=== PATIENT | male | born 1960 | race Caucasian/White ===

== ENCOUNTER 2017-03-31 06:24 | Inpatient (IN) | payer OTHER ==
[2017-03-31] MEDS ORDERED: fentaNYL 100 MCG/2 ML INJ ONE ×2 (06:33→08:05)
[2017-03-31] MEDS ORDERED: IOPAMIDOL (ISOVUE-300) 100 ML BTL ONE (06:35)
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
[2017-03-31] MEDS ORDERED: fentaNYL 100 MCG/2 ML INJ IVP ONE ×5 (06:38→11:33)
[2017-03-31] MEDS ORDERED: ONDANSETRON 4 MG/2 ML VIAL IVP ONE ×5 (06:38→11:32)
[2017-03-31 06:41] LABS: % IMMATURE GRANULYOCYTES 2.1 % (0.0-1.1); ABSOLUTE IMMATURE GRANULOCYTES 0.17 10^3/uL (0.00-0.10); ADD DIFF? NO; ADD MORPH? NO; ADD SCAN? NO; ATYPICAL LYMPHOCYTE FLAG 0 (0-99); FRAGMENT RBC FLAG 0 (0-99); HEMATOCRIT 45.7 % (40.0-51.0); HEMOGLOBIN 15.7 g/dL (13.7-17.5); LEFT SHIFT FLG 20 (0-99); LIPEMIA HEMOLYSIS FLAG 90 (0-99); MEAN CELL HEMOGLOBIN 31.7 pg (27.9-34.1); MEAN CELL HEMOGLOBIN CONCENTR. 34.4 g/dL (32.4-36.7); MEAN CELL VOLUME 92.3 fL (81.5-99.8); MEAN PLATELET VOLUME 9.8 fL (8.7-11.7); PLATELET CLUMPS FLAG 0 (0-99); PLATELET COUNT 284 10^3/uL (150-400); RED BLOOD CELL COUNT 4.95 10^6/uL (4.40-6.38); RED CELL DISTRIBUTION WIDTH 12.7 % (11.5-15.2)
[2017-03-31] MEDS ORDERED: NS 1,000 ML IV ONE (06:42)
[2017-03-31] MEDS ORDERED: levETIRAcetam 1,000 MG in NS 100 ML IV ONE ×2 (06:46→18:00)
[2017-03-31 06:50] LABS: INR 1.05 (0.83-1.16); PROTIME(PATIENT) 13.6 SEC (12.0-15.0)
[2017-03-31 06:51] LABS: APTT 27.1 SEC (23.0-38.0)
[2017-03-31 06:52] LABS: ANION GAP 12 mEq/L (8-16); CALCIUM 9.2 mg/dL (8.5-10.4); CARBON DIOXIDE 27 mEq/l (22-31); CHLORIDE 101 mEq/L (97-110); CREATININE 0.8 mg/dL (0.7-1.3); ETHANOL SERUM < 10 mg/dL (0-10); GLOMERULAR FILTRATION RATE > 60; GLUCOSE 129 mg/dL (70-100); POTASSIUM 3.4 mEq/L (3.5-5.2); SODIUM 140 mEq/L (134-144)
[2017-03-31] MEDS ORDERED: IOPAMIDOL (ISOVUE 370) 100 ML BTL IV ONE ×2 (07:15→09:19)
[2017-03-31] MEDS ORDERED: PROMETHAZINE HCL 25 MG/ML INJ IVP ONE (07:38)
[2017-03-31] MEDS ORDERED: PROMETHAZINE HCL 25 MG/ML INJ ONE (07:39)
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
[2017-03-31] MEDS ORDERED: METOCLOPRAMIDE 10 MG/2 ML VIAL ONE (08:50)
[2017-03-31] MEDS ORDERED: NALOXONE HCL 0.4 MG/ML INJ IVP PRN (08:58)
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
[2017-03-31] MEDS: fentaNYL 100 MCG/2 ML INJ IVP PRN ×5 (09:20→21:53)
--- NOTE | 2017-03-31 11:03 | TRAUMAPN ---
Assessment/Plan: CT head with increased SAH changes, less SDH. Carotid arteries normal. Exam still impulsive. pupils unchanged. nausea better with reglan. vss. care plan reviewed with family (/son) at bedside. Dr. Wade notified of updates. Being transferred to ICU. Seen in ED multiple times prior. Objective: Vital Signs Temp Pulse Resp BP Pulse Ox 36.4 C 80 22 H 140/70 H 96 03/31/17 06:22 03/31/17 06:22 03/31/17 06:22 03/31/17 06:22 03/31/17 06:22 PT 13.6 SEC (12.0-15.0) 03/31/17 06:30 INR 1.05 (0.83-1.16) 03/31/17 06:30
[2017-03-31] MEDS ORDERED: METOCLOPRAMIDE 10 MG/2 ML VIAL IVP ONE (11:34)
[2017-03-31] MEDS: NS 1,000 ML IV SCH ×2 (11:52→21:55)
[2017-03-31] MEDS: ONDANSETRON 4 MG/2 ML VIAL IVP PRN ×2 (12:08→16:47)
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
[2017-03-31] MEDS: PANTOPRAZOLE SODIUM 40 MG VIAL IVP SCH (15:05)
[2017-03-31] MEDS ORDERED: BACITRACIN OINTMENT 1 PACKET TP ONE (16:32)
[2017-04-01] MEDS: fentaNYL 100 MCG/2 ML INJ IVP PRN ×11 (00:12→22:35)
[2017-04-01 06:12] LABS: ANION GAP 9 mEq/L (8-16); CARBON DIOXIDE 26 mEq/l (22-31); CHLORIDE 108 mEq/L (97-110); CREATININE 0.7 mg/dL (0.7-1.3); GLOMERULAR FILTRATION RATE > 60; GLUCOSE 111 mg/dL (70-100); POTASSIUM 4.5 mEq/L (3.5-5.2); SODIUM 143 mEq/L (134-144)
[2017-04-01 06:52] LABS: % IMMATURE GRANULYOCYTES 0.5 % (0.0-1.1); ABSOLUTE IMMATURE GRANULOCYTES 0.06 10^3/uL (0.00-0.10); ADD DIFF? NO; ADD MORPH? NO; ADD SCAN? NO; ATYPICAL LYMPHOCYTE FLAG 10 (0-99); FRAGMENT RBC FLAG 0 (0-99); HEMATOCRIT 37.6 % (40.0-51.0); HEMOGLOBIN 12.7 g/dL (13.7-17.5); LEFT SHIFT FLG 0 (0-99); LIPEMIA HEMOLYSIS FLAG 90 (0-99); MEAN CELL HEMOGLOBIN 31.8 pg (27.9-34.1); MEAN CELL HEMOGLOBIN CONCENTR. 33.8 g/dL (32.4-36.7); MEAN PLATELET VOLUME 9.7 fL (8.7-11.7); PLATELET CLUMPS FLAG 0 (0-99); PLATELET COUNT 210 10^3/uL (150-400)
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
[2017-04-01] MEDS: KETOROLAC 15 MG/1 ML SDV IVP SCH ×3 (08:12→18:05)
[2017-04-01] MEDS: levETIRAcetam 500 MG in NS 100 ML IV SCH ×2 (08:12→21:00)
[2017-04-01] MEDS: PANTOPRAZOLE SODIUM 40 MG VIAL IVP SCH (08:12)
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
[2017-04-01] MEDS: ACETAMINOPHEN 325 MG TAB PO PRN (11:14)
[2017-04-01] MEDS ORDERED: KETOROLAC 15 MG/1 ML SDV IVP SCH (12:00)
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
[2017-04-01] MEDS: ACETAMINOPHEN 500 MG TAB PO SCH (21:00)
[2017-04-01] MEDS: NS 1,000 ML IV SCH (21:05)
[2017-04-01] MEDS: ONDANSETRON 4 MG/2 ML VIAL IVP PRN (23:21)
[2017-04-02] MEDS: KETOROLAC 15 MG/1 ML SDV IVP SCH ×4 (00:47→17:19)
[2017-04-02] MEDS: fentaNYL 100 MCG/2 ML INJ IVP PRN ×2 (00:49→02:11)
[2017-04-02] MEDS: ACETAMINOPHEN 325 MG TAB PO PRN (04:41)
[2017-04-02] MEDS: NS 1,000 ML IV SCH ×2 (06:02→18:13)
[2017-04-02 06:24] LABS: ANION GAP 9 mEq/L (8-16); CALCIUM 8.5 mg/dL (8.5-10.4); CARBON DIOXIDE 29 mEq/l (22-31); CHLORIDE 108 mEq/L (97-110); CREATININE 0.7 mg/dL (0.7-1.3); GLOMERULAR FILTRATION RATE > 60; GLUCOSE 105 mg/dL (70-100); POTASSIUM 4.6 mEq/L (3.5-5.2); SODIUM 146 mEq/L (134-144)
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
[2017-04-02] MEDS: ALPRAZolam 0.25 MG TAB PO SCH ×2 (09:00→20:17)
[2017-04-02] MEDS: levETIRAcetam 500 MG in NS 100 ML IV SCH (09:00)
[2017-04-02] MEDS: PANTOPRAZOLE SODIUM 40 MG VIAL IVP SCH (09:00)
[2017-04-02] MEDS: ACETAMINOPHEN 500 MG TAB PO SCH ×3 (09:12→21:46)
[2017-04-02] MEDS: oxyCODONE IR 5 MG TAB PO PRN ×2 (09:16→20:17)
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
[2017-04-02] MEDS: ONDANSETRON 4 MG/2 ML VIAL IVP PRN (13:43)
[2017-04-02] MEDS: levETIRAcetam 500 MG TAB PO SCH (20:17)
[2017-04-03] MEDS: KETOROLAC 15 MG/1 ML SDV IVP SCH ×4 (00:07→17:46)
[2017-04-03] MEDS: QUEtiapine FUMARATE 25 MG TAB PO PRN ×2 (03:22→10:13)
[2017-04-03] MEDS: ONDANSETRON 4 MG/2 ML VIAL IVP PRN (03:53)
[2017-04-03] MEDS: NS 1,000 ML IV SCH ×3 (03:53→21:56)
[2017-04-03 04:43] LABS: ANION GAP 7 mEq/L (8-16); CALCIUM 8.5 mg/dL (8.5-10.4); CARBON DIOXIDE 28 mEq/l (22-31); CHLORIDE 109 mEq/L (97-110); CREATININE 0.7 mg/dL (0.7-1.3); GLOMERULAR FILTRATION RATE > 60; GLUCOSE 100 mg/dL (70-100); POTASSIUM 4.4 mEq/L (3.5-5.2); SODIUM 144 mEq/L (134-144)
[2017-04-03] MEDS ORDERED: LORazepam 2 MG/ML INJ IVP ONE ×2 (06:15→08:00)
[2017-04-03] MEDS: ALPRAZolam 0.25 MG TAB PO SCH (06:28)
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
[2017-04-03] MEDS: PANTOPRAZOLE SODIUM 40 MG VIAL IVP SCH (10:13)
[2017-04-03] MEDS: ACETAMINOPHEN 500 MG TAB PO SCH ×4 (10:13→21:15)
[2017-04-03] MEDS: levETIRAcetam 500 MG TAB PO SCH ×3 (10:13→21:16)
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
[2017-04-03] MEDS ORDERED: DEXMEDETOMIDINE HCL 400 MCG in NS 100 ML IV SCH (13:30)
--- NOTE | 2017-04-03 13:59 | ASMTCMCOM ---
CM Note CM Note Notes: Spoke to patient's , Akila who would like patient to go to [facility] if possible. Her second choice would be [facility]. Referrals sent to both facilities. Date Signed: 04/03/2017 01:59 PM Electronically Signed By:Dee Chance LCSW
[2017-04-03] MEDS: DEXMEDETOMIDINE IN 0.9 % NACL 100 ML IV SCH (14:19)
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
[2017-04-03] MEDS: MELATONIN 3 MG TAB PO SCH ×2 (21:05→21:17)
[2017-04-03] MEDS ORDERED: levOFLOXACIN 500 MG/DEXTROSE 100 ML IV SCH (21:45)
[2017-04-03] MEDS: levETIRAcetam 500 MG in NS 100 ML IV SCH (21:56)
[2017-04-04] MEDS: KETOROLAC 15 MG/1 ML SDV IVP SCH ×2 (00:23→06:12)
[2017-04-04] MEDS: ACETAMINOPHEN 325 MG TAB PO PRN (03:47)
[2017-04-04] MEDS: oxyCODONE IR 5 MG TAB PO PRN ×3 (03:48→17:39)
[2017-04-04] MEDS: QUEtiapine FUMARATE 25 MG TAB PO PRN (03:48)
[2017-04-04] MEDS: DEXMEDETOMIDINE IN 0.9 % NACL 100 ML IV SCH (03:56)
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
[2017-04-04] MEDS ORDERED: MAGNESIUM CITRATE 300 ML BOTTLE PO ONE (08:47)
[2017-04-04] MEDS: levETIRAcetam 500 MG in NS 100 ML IV SCH (09:00)
[2017-04-04] MEDS: ACETAMINOPHEN 500 MG TAB PO SCH ×3 (09:01→20:51)
[2017-04-04] MEDS: PANTOPRAZOLE SODIUM 40 MG TAB PO SCH (09:01)
--- NOTE | 2017-04-04 09:05 | TRAUMAPN ---
- Problem/Surgery Performed (1) Subdural hemorrhage Assessment/Plan: PAD#4 04/04/2017 Assessment: CT head stable - improved. Dr. Wade agrees with DVT chemical prophylaxis initiation today Plan: Lovenox (2) Rib fractures Assessment/Plan: 04/04/2017 Assessment: Poor cooperation with exam but no rhonchi noted CXR - no PTX - some consolidation/residual contusion noted. Poor effort. SATs 100% on 2 lpm Plan: FU CXR tomorrow. Work on mobilization ( unlikely that he will comply with IS), May try CPAP/BiPAP Qualifiers: Encounter type: subsequent encounter Rib fracture type: multiple ribs Fracture type: closed Laterality: right Qualified Code(s): S22.41XA - Multiple fractures of ribs, right side, initial encounter for closed fracture Assessment/Plan: 04/04/2017 No stool since admission. Plan: Mag citrate today Subjective: Dis-inclined to cooperate. Objective: Vital Signs Temp Pulse Resp BP Pulse Ox 36.7 C 41 L 14 130/67 H 100 04/04/17 07:48 04/04/17 07:48 04/04/17 07:48 04/04/17 07:48 04/04/17 07:48 Laboratory Results 04/01/17 06:45 04/03/17 04:00 04/03/17 04/04/17 04/05/17 05:59 05:59 05:59 Intake Total 2985 3869.0 Output Total 550 950 Balance 2435 2919.0 PT 13.6 SEC (12.0-15.0) 03/31/17 06:30 INR 1.05 (0.83-1.16) 03/31/17 06:30 - C-Spine Clearance Cervical Spine Cleared: No Physical Exam - Physical Exam General Appearance: WD/WN, other (combative/abusive ) Neck: other (Hard collar in place) Respiratory: other (Sub optimal exam due to lack of cooperation but no rhonchi noted and air sounds equal bilaterally) Cardiac/Chest: regular rate, rhythm Abdomen: normal bowel sounds, non-tender, soft, other (flatus but no stool) Male Genitalia: deferred Rectal: deferred Skin: normal color, warm/dry Neuro/Psych: other (arousable but not cooperative) Time Spent w/Patient (minutes): 35
[2017-04-04] MEDS: ENOXAPARIN 30 MG/0.3 ML SYR SC SCH ×2 (09:22→20:52)
[2017-04-04] MEDS: NS 1,000 ML IV SCH (09:23)
[2017-04-04 11:07] LABS: % IMMATURE GRANULYOCYTES 0.5 % (0.0-1.1); ABSOLUTE IMMATURE GRANULOCYTES 0.04 10^3/uL (0.00-0.10); ADD DIFF? NO; ADD MORPH? NO; ADD SCAN? NO; ATYPICAL LYMPHOCYTE FLAG 0 (0-99); FRAGMENT RBC FLAG 0 (0-99); HEMATOCRIT 36.1 % (40.0-51.0); HEMOGLOBIN 12.1 g/dL (13.7-17.5); LEFT SHIFT FLG 0 (0-99); LIPEMIA HEMOLYSIS FLAG 80 (0-99); MEAN CELL HEMOGLOBIN CONCENTR. 33.5 g/dL (32.4-36.7); MEAN CELL VOLUME 95.5 fL (81.5-99.8); MEAN PLATELET VOLUME 10.6 fL (8.7-11.7); PLATELET CLUMPS FLAG 0 (0-99); PLATELET COUNT 189 10^3/uL (150-400); RED BLOOD CELL COUNT 3.78 10^6/uL (4.40-6.38); RED CELL DISTRIBUTION WIDTH 12.4 % (11.5-15.2)
[2017-04-04 11:46] LABS: ALANINE AMINOTRANSFERASE 43 IU/L (21-72); ALBUMIN 2.9 g/dL (3.5-5.0); ALKALINE PHOSPHATASE 85 IU/L (38-126); ANION GAP 12 mEq/L (8-16); ASPARTATE AMINOTRANSFERASE 41 IU/L (17-59); BILIRUBIN,TOTAL 0.6 mg/dL (0.1-1.4); CALCIUM 8.3 mg/dL (8.5-10.4); CARBON DIOXIDE 27 mEq/l (22-31); CHLORIDE 106 mEq/L (97-110); CREATININE 0.7 mg/dL (0.7-1.3); GLOMERULAR FILTRATION RATE > 60; GLUCOSE 140 mg/dL (70-100); POTASSIUM 4.8 mEq/L (3.5-5.2); SODIUM 145 mEq/L (134-144)
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
[2017-04-04] MEDS ORDERED: KETOROLAC 15 MG/1 ML SDV IVP ONE (14:18)
[2017-04-04] MEDS ORDERED: FUROSEMIDE 20 MG/2 ML VIAL IVP ONE (14:19)
--- NOTE | 2017-04-04 14:23 | ASMTCMCOM ---
CM Note CM Note Notes: Patient off precedex and restraints, RN reports that he has been cooperative. Met with in "Family Meeting". She prefers if patient could go to [facility]. [facility] does not do admissions MON-MON, they will not have bed availability until Monday. [facility] does admit over the weekend and will need 24hrs to get auth from ins. [facility] is 's 2nd choice. Updated referrals to both facilities today. Date Signed: 04/04/2017 02:23 PM Electronically Signed By:Dee Chance LCSW
[2017-04-04] MEDS: ONDANSETRON 4 MG/2 ML VIAL IVP PRN (17:39)
[2017-04-04] MEDS: levETIRAcetam 500 MG TAB PO SCH (20:51)
[2017-04-04] MEDS: MELATONIN 3 MG TAB PO SCH (20:51)
[2017-04-05] MEDS: oxyCODONE IR 5 MG TAB PO PRN ×2 (02:30→11:47)
[2017-04-05] MEDS: levETIRAcetam 500 MG TAB PO SCH ×2 (08:35→21:06)
[2017-04-05] MEDS: ACETAMINOPHEN 500 MG TAB PO SCH ×3 (08:35→21:05)
[2017-04-05] MEDS: PANTOPRAZOLE SODIUM 40 MG TAB PO SCH (08:35)
[2017-04-05] MEDS: ENOXAPARIN 30 MG/0.3 ML SYR SC SCH (08:35)
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
[2017-04-05] MEDS: ONDANSETRON 4 MG/2 ML VIAL IVP PRN ×3 (09:54→21:07)
--- NOTE | 2017-04-05 12:28 | TRAUMAPN ---
- Problem/Surgery Performed (1) Subdural hemorrhage Assessment/Plan: PAD#4 04/04/2017 Assessment: CT head stable - improved. Dr. Wade agrees with DVT chemical prophylaxis initiation today Plan: Lovenox PAD#5 Assessment: Dramatic improvement in mental clarity. Plan: transfer out of unit (2) Rib fractures Assessment/Plan: 04/04/2017 Assessment: Poor cooperation with exam but no rhonchi noted CXR - no PTX - some consolidation/residual contusion noted. Poor effort. SATs 100% on 2 lpm Plan: FU CXR tomorrow. Work on mobilization ( unlikely that he will comply with IS), May try CPAP/BiPAP 04/05/2017 Assessment: CXR improved, Lungs clear Plan: Continue IS. Qualifiers: Encounter type: subsequent encounter Rib fracture type: multiple ribs Fracture type: closed Laterality: right Qualified Code(s): S22.41XA - Multiple fractures of ribs, right side, initial encounter for closed fracture Assessment/Plan: 04/04/2017 No stool since admission. Plan: Mag citrate today 04/05/2017 Assessment: Good bowel movement yesterday. Subjective: 04/05/2017 No complaints Objective: Vital Signs Temp Pulse Resp BP Pulse Ox 36.8 C 57 L 14 130/79 H 98 04/05/17 08:00 04/05/17 08:00 04/05/17 08:00 04/05/17 08:00 04/05/17 08:00 Laboratory Results 04/04/17 11:00 04/04/17 11:00 04/04/17 04/05/17 04/06/17 05:59 05:59 05:59 Intake Total 3869.0 2180 Output Total 950 800 Balance 2919.0 1380 PT 13.6 SEC (12.0-15.0) 03/31/17 06:30 INR 1.05 (0.83-1.16) 03/31/17 06:30 - C-Spine Clearance Cervical Spine Cleared: No Physical Exam - Physical Exam General Appearance: WD/WN, alert, no apparent distress Neck: non-tender, full range of motion, supple (will continue collar) Respiratory: chest non-tender, lungs clear, normal breath sounds Cardiac/Chest: regular rate, rhythm Abdomen: normal bowel sounds, non-tender, soft Male Genitalia: deferred Rectal: deferred Back: Normal inspection Skin: normal color, warm/dry Neuro/Psych: no motor/sensory deficits, alert, normal mood/affect, oriented x 3 Time Spent w/Patient (minutes): 35
--- NOTE | 2017-04-05 13:15 | ASMTCMCOM ---
CM Note CM Note Notes: Spoke with Dr. Cotton who says d/c arrangements can be made for Monday. [facility] does not have a bed until then and they do not admit on Monday, Monday, or Monday. The family wants patient to go to [facility]. Left 2 messages for Fifi in admissions with [facility]. She has not returned call yet. Awaiting her call back to make final arrangements with [facility] for Monday,April 10, 2017. CM will follow. Date Signed: 04/05/2017 01:15 PM Electronically Signed By:Estella Concepcion LCSW
[2017-04-05] MEDS: MELATONIN 3 MG TAB PO SCH (21:06)
[2017-04-06] MEDS: ONDANSETRON 4 MG/2 ML VIAL IVP PRN ×2 (04:30→18:55)
[2017-04-06] MEDS: ACETAMINOPHEN 500 MG TAB PO SCH ×3 (08:21→20:30)
[2017-04-06] MEDS: PANTOPRAZOLE SODIUM 40 MG TAB PO SCH (08:21)
[2017-04-06] MEDS: levETIRAcetam 500 MG TAB PO SCH ×2 (08:21→20:30)
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
--- NOTE | 2017-04-06 09:58 | ASMTCMCOM ---
CM Note CM Note Notes: Eriberto from [facility] called ([phone]). She wanted to confirm admit for patient on Monday. Faxed her updates so she can pursue insurance authorization ([phone]). Patient has been transferred to . Final arrangements will be made on Monday. Eriberto will call us back re: insurance authorization. CM will Follow. Date Signed: 04/06/2017 09:58 AM Electronically Signed By:Estella Concepcion LCSW
[2017-04-06] MEDS ORDERED: MAGNESIUM CITRATE 300 ML BOTTLE PO ONE ×2 (16:19→18:30)
--- NOTE | 2017-04-06 16:23 | TRAUMAPN ---
- Problem/Surgery Performed (1) Subdural hemorrhage Assessment/Plan: PAD#4 04/04/2017 Assessment: CT head stable - improved. Dr. Wade agrees with DVT chemical prophylaxis initiation today Plan: Lovenox PAD#5 Assessment: Dramatic improvement in mental clarity. Plan: transfer out of unit PAD#6 04/06/2017 Assessment: Continues to improve. One more day of Keppra Plan: [facility] for re[facility] (2) Rib fractures Assessment/Plan: 04/04/2017 Assessment: Poor cooperation with exam but no rhonchi noted CXR - no PTX - some consolidation/residual contusion noted. Poor effort. SATs 100% on 2 lpm Plan: FU CXR tomorrow. Work on mobilization ( unlikely that he will comply with IS), May try CPAP/BiPAP 04/05/2017 Assessment: CXR improved, Lungs clear Plan: Continue IS. 04/06/2017 Lungs clear Qualifiers: Encounter type: subsequent encounter Rib fracture type: multiple ribs Fracture type: closed Laterality: right Qualified Code(s): S22.41XA - Multiple fractures of ribs, right side, initial encounter for closed fracture Assessment/Plan: 04/04/2017 No stool since admission. Plan: Mag citrate today 04/05/2017 Assessment: Good bowel movement yesterday. 04/06/2017 No stool x 48 hours - will add mag citrate Subjective: no complaints Objective: Vital Signs Temp Pulse Resp BP Pulse Ox 36.8 C 63 16 131/75 H 95 04/06/17 07:24 04/06/17 11:32 04/06/17 11:32 04/06/17 11:32 04/06/17 11:32 Laboratory Results 04/04/17 11:00 04/04/17 11:00 04/05/17 04/06/17 04/07/17 05:59 05:59 05:59 Intake Total 2180 800 Output Total 800 650 400 Balance 1380 150 -400 PT 13.6 SEC (12.0-15.0) 03/31/17 06:30 INR 1.05 (0.83-1.16) 03/31/17 06:30 - C-Spine Clearance Cervical Spine Cleared: No Physical Exam - Physical Exam General Appearance: WD/WN, alert, no apparent distress EENT: other (Right fronto-pariatal contusion) Neck: other (Still in C-collar due to c-spine ligmentous injury) Respiratory: chest non-tender, lungs clear, normal breath sounds Cardiac/Chest: regular rate, rhythm Abdomen: normal bowel sounds, non-tender, soft Male Genitalia: deferred Rectal: deferred Back: Normal inspection Skin: normal color, warm/dry Neuro/Psych: no motor/sensory deficits, alert, normal mood/affect, oriented x 3 Time Spent w/Patient (minutes): 15
[2017-04-06] MEDS: MELATONIN 3 MG TAB PO SCH (20:29)
[2017-04-06] MEDS: ENOXAPARIN 30 MG/0.3 ML SYR SC SCH (22:01)
[2017-04-07] MEDS: oxyCODONE IR 5 MG TAB PO PRN (00:07)
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
[2017-04-07] MEDS: ACETAMINOPHEN 500 MG TAB PO SCH ×3 (08:14→20:54)
[2017-04-07] MEDS: PANTOPRAZOLE SODIUM 40 MG TAB PO SCH (08:16)
[2017-04-07] MEDS: levETIRAcetam 500 MG TAB PO SCH (08:16)
[2017-04-07] MEDS: ENOXAPARIN 30 MG/0.3 ML SYR SC SCH ×2 (08:17→20:55)
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
--- NOTE | 2017-04-07 17:16 | ASMTCMCOM ---
CM Note CM Note Notes: Spoke elena Sara at [facility] [phone] who reports insurance will not allow them to submit for authorization until Monday morning. [facility] will require CM to send latest therapy notes Monday. [facility] does not accept admissions later than 14:00 so everything will need to fall into place for d/c Monday. RN report at [facility] is 3W [phone]. Updated pt who will contact the insurance verification clerk. CM to follow. D/c plan of care: [facility] Monday if pt medically stable and insurance auth obtained Date Signed: 04/07/2017 05:16 PM Electronically Signed By:ENRIQUE Cartwright
[2017-04-07] MEDS: MELATONIN 3 MG TAB PO SCH (20:54)
[2017-04-08] MEDS: oxyCODONE IR 5 MG TAB PO PRN ×2 (05:10→11:21)
[2017-04-08] MEDS: ACETAMINOPHEN 500 MG TAB PO SCH ×3 (06:24→20:34)
[2017-04-08] MEDS: PANTOPRAZOLE SODIUM 40 MG TAB PO SCH (08:41)
[2017-04-08] MEDS: ENOXAPARIN 30 MG/0.3 ML SYR SC SCH ×2 (08:41→20:34)
[2017-04-08] MEDS ORDERED: MAGNESIUM CITRATE 300 ML BOTTLE PO ONE (08:52)
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
--- NOTE | 2017-04-08 12:48 | TRAUMAPN ---
- Problem/Surgery Performed (1) Subdural hemorrhage Assessment/Plan: PAD#4 04/04/2017 Assessment: CT head stable - improved. Dr. Wade agrees with DVT chemical prophylaxis initiation today Plan: Lovenox PAD#5 Assessment: Dramatic improvement in mental clarity. Plan: transfer out of unit PAD#6 04/06/2017 Assessment: Continues to improve. One more day of Keppra Plan: [facility] for re[facility] PAD#8 04/08/2017 To [facility] on Monday (2) Rib fractures Assessment/Plan: 04/04/2017 Assessment: Poor cooperation with exam but no rhonchi noted CXR - no PTX - some consolidation/residual contusion noted. Poor effort. SATs 100% on 2 lpm Plan: FU CXR tomorrow. Work on mobilization ( unlikely that he will comply with IS), May try CPAP/BiPAP 04/05/2017 Assessment: CXR improved, Lungs clear Plan: Continue IS. 04/06/2017 Lungs clear 04/08/2017 Assessment: C/o posterior rib fracture pain. Plan: Start Lidoderm patch Qualifiers: Encounter type: subsequent encounter Rib fracture type: multiple ribs Fracture type: closed Laterality: right Qualified Code(s): S22.41XA - Multiple fractures of ribs, right side, initial encounter for closed fracture Assessment/Plan: 04/04/2017 No stool since admission. Plan: Mag citrate today 04/05/2017 Assessment: Good bowel movement yesterday. 04/06/2017 No stool x 48 hours - will add mag citrate 04/08/2017 Has moved bowels Subjective: c/o several areas of pain (left SI, Right posterior ribs, headache) Objective: Vital Signs Temp Pulse Resp BP Pulse Ox 36.7 C 66 16 123/75 H 95 04/08/17 11:50 04/08/17 11:50 04/08/17 11:50 04/08/17 11:50 04/08/17 11:50 Laboratory Results 04/04/17 11:00 04/04/17 11:00 04/07/17 04/08/17 04/09/17 05:59 05:59 05:59 Intake Total 500 Output Total 800 Balance -800 500 PT 13.6 SEC (12.0-15.0) 03/31/17 06:30 INR 1.05 (0.83-1.16) 03/31/17 06:30 - C-Spine Clearance Cervical Spine Cleared: No Physical Exam - Physical Exam General Appearance: WD/WN, alert, mild distress Neck: other (In hard collar due to ligamentous injury - to see Neurosurgery for re-eval at 2 weeks from injury 04/14 or 04/17,) Respiratory: chest non-tender (except posteriorly just below tip of scaplua), lungs clear, normal breath sounds Cardiac/Chest: regular rate, rhythm Abdomen: normal bowel sounds, non-tender, soft Male Genitalia: deferred Rectal: deferred Back: Normal inspection Skin: normal color, warm/dry Neuro/Psych: no motor/sensory deficits, alert, normal mood/affect, oriented x 3 Time Spent w/Patient (minutes): 25
[2017-04-08] MEDS: LIDOCAINE 5% 1 EA PATCH TD SCH (14:48)
[2017-04-08] MEDS: POLYETHYLENE GLYCOL 3350 17 GM PKT PO SCH (15:26)
[2017-04-08] MEDS: HYDROmorphONE/DILAUDID 2 MG TAB PO PRN ×2 (16:14→20:34)
[2017-04-08] MEDS: CYCLOBENZAPRINE 10 MG TAB PO PRN (17:32)
[2017-04-08] MEDS: MELATONIN 3 MG TAB PO SCH (20:33)
[2017-04-08] MEDS: PATCH REMOVAL 1 EA PATCH TD SCH (20:41)
[2017-04-09] MEDS: CYCLOBENZAPRINE 10 MG TAB PO PRN (00:29)
[2017-04-09] MEDS: HYDROmorphONE/DILAUDID 2 MG TAB PO PRN ×4 (00:30→19:18)
[2017-04-09] MEDS: ACETAMINOPHEN 500 MG TAB PO SCH ×3 (09:31→21:58)
[2017-04-09] MEDS: LIDOCAINE 5% 1 EA PATCH TD SCH (09:32)
[2017-04-09] MEDS: ENOXAPARIN 30 MG/0.3 ML SYR SC SCH ×2 (09:32→21:58)
[2017-04-09] MEDS: POLYETHYLENE GLYCOL 3350 17 GM PKT PO SCH (09:33)
[2017-04-09] MEDS: PANTOPRAZOLE SODIUM 40 MG TAB PO SCH (09:33)
--- NOTE | 2017-04-09 12:16 | PDIAF ---
- Diagnosis Diagnosis: SDH,SAH,Rib Fx R6&7,R scapula fracture,Skull fracture,Cervical ligament inj Code Status: Full Code - Medication Management Discharge Medications: Medications to Continue on Transfer METHYLPHENIDATE HCL [Concerta 36 mg] 36 mg PO BID 06/17/15 [Last Taken 06/17/15] Methylphenidate HCl [Ritalin 20mg (*)] 10 mg PO 5XD PRN 06/17/15 [Last Taken ] Pantoprazole Sodium [Protonix 40mg (*)] 40 mg PO DAILY 03/31/17 [Last Taken Unknown] Acetaminophen [Tylenol ES 500 mg (*)] 1,000 mg PO TID tab 04/09/17 [Last Taken Unknown] Cyclobenzaprine [Flexeril 10 MG (*)] 10 mg PO TID PRN #20 tab 04/09/17 [Last Taken Unknown] Enoxaparin [Lovenox] 30 mg SC BID #10 syr 04/09/17 [Last Taken Unknown] Lidocaine 5% [Lidoderm 5% Patch (*)] 1 ea TD DAILY 15 Days patch 04/09/17 [ Last Taken Unknown] Patch Removal 1 ea TD DAILY21 patch 04/09/17 [Last Taken Unknown] Polyethylene Glycol 3350 [Miralax 17 gm (*)] 17 gm PO DAILY pkt 04/09/17 [Last Taken Unknown] QUEtiapine FUMARATE [Seroquel 25 mg (*)] 25 mg PO BID PRN #14 tab 04/09/17 [ Last Taken Unknown] Discharge Medications: Refer to the Discharge Home Medication list for PRN reason. - Orders Services needed: Registered Nurse, Master Agricultural Service Worker, Physical Therapy, Occupational Therapy Diet Recommendation: no restrictions on diet Diet Texture: Regular Texture Diet, Thin Liquids, Meds Whole w/Liquids - Follow Up Care Current Providers and Referrals: Joshua Wade MD [Medical Doctor] - follow up in 2 weeks Patient,NotPresent [Unknown] - As per Instructions Gage Art MD [Medical Doctor] - (F/U 1 MONTH R/T SCAPULAR FX. POSS FOR REPEAT FILMS)
--- NOTE | 2017-04-09 12:34 | TRAUMAPN ---
- Problem/Surgery Performed (1) Subdural hemorrhage Assessment/Plan: PAD#4 04/04/2017 Assessment: CT head stable - improved. Dr. Wade agrees with DVT chemical prophylaxis initiation today Plan: Lovenox PAD#5 Assessment: Dramatic improvement in mental clarity. Plan: transfer out of unit PAD#6 04/06/2017 Assessment: Continues to improve. One more day of Keppra Plan: [facility] for [facility] PAD#8 04/08/2017 To [facility] on Monday PAD#9 04/09/2017 Assessment: Doing well. To [facility] tomorrow (2) Rib fractures Assessment/Plan: 04/04/2017 Assessment: Poor cooperation with exam but no rhonchi noted CXR - no PTX - some consolidation/residual contusion noted. Poor effort. SATs 100% on 2 lpm Plan: FU CXR tomorrow. Work on mobilization ( unlikely that he will comply with IS), May try CPAP/BiPAP 04/05/2017 Assessment: CXR improved, Lungs clear Plan: Continue IS. 04/06/2017 Lungs clear 04/08/2017 Assessment: C/o posterior rib fracture pain. Plan: Start Lidoderm patch 04/08/2017 Doing well Qualifiers: Encounter type: subsequent encounter Rib fracture type: multiple ribs Fracture type: closed Laterality: right Qualified Code(s): S22.41XA - Multiple fractures of ribs, right side, initial encounter for closed fracture Assessment/Plan: 04/04/2017 No stool since admission. Plan: Mag citrate today 04/05/2017 Assessment: Good bowel movement yesterday. 04/06/2017 No stool x 48 hours - will add mag citrate 04/08/2017 Has moved bowels Subjective: I'm doing well Objective: Vital Signs Temp Pulse Resp BP Pulse Ox 37 C 66 14 144/76 H 96 04/09/17 08:06 04/09/17 08:06 04/09/17 08:06 04/09/17 08:06 04/09/17 08:06 Laboratory Results 04/04/17 11:00 04/04/17 11:00 04/08/17 04/09/17 04/10/17 05:59 05:59 05:59 Intake Total 500 1000 Balance 500 1000 PT 13.6 SEC (12.0-15.0) 03/31/17 06:30 INR 1.05 (0.83-1.16) 03/31/17 06:30 - C-Spine Clearance Cervical Spine Cleared: No Physical Exam - Physical Exam General Appearance: WD/WN, alert, no apparent distress Neck: other (in C-collar until re-eval on 04/14 or 04/17-) Respiratory: lungs clear, normal breath sounds Cardiac/Chest: regular rate, rhythm Abdomen: normal bowel sounds, non-tender, soft Time Spent w/Patient (minutes): 25
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
--- NOTE | 2017-04-09 14:13 | ASMTCMCOM ---
CM Note CM Note Notes: 04/09/17 Therapy notes updated to [facility]. Dc tomorrow pending approval. Will needs trasportation arranged. Spoke w Sara at [facility] [phone] who reports insurance will not allow them to submit for authorization until Monday morning. [facility] will require CM to send latest therapy notes Monday. [facility] does not accept admissions later than 14:00 so everything will need to fall into place for d/c Monday. RN report at [facility] is [phone]. Updated pt who will contact the licensed insurance sales agent. CM to follow. D/c plan of care: [facility] Monday if pt medically stable and insurance auth obtained Date Signed: 04/09/2017 02:12 PM Electronically Signed By:Angela Pimentel RN
[2017-04-09] MEDS: MELATONIN 3 MG TAB PO SCH (22:05)
[2017-04-09] MEDS: PATCH REMOVAL 1 EA PATCH TD SCH (22:06)
[2017-04-10] MEDS: HYDROmorphONE/DILAUDID 2 MG TAB PO PRN ×3 (02:07→12:27)
[2017-04-10] MEDS: QUEtiapine FUMARATE 25 MG TAB PO PRN (04:12)
[2017-04-10 07:32] VITALS: RESP 18; TEMP 98.4; O2SAT 94
[2017-04-10] MEDS: PANTOPRAZOLE SODIUM 40 MG TAB PO SCH (09:05)
[2017-04-10] MEDS: ENOXAPARIN 30 MG/0.3 ML SYR SC SCH (09:06)
[2017-04-10] MEDS: ACETAMINOPHEN 500 MG TAB PO SCH ×2 (09:06→14:40)
[2017-04-10] MEDS: LIDOCAINE 5% 1 EA PATCH TD SCH (09:07)
[2017-04-10] MEDS ORDERED: ONDANSETRON DISINTEGRATING 4 MG TAB ONE ×2 (09:33)
--- NOTE | 2017-04-10 09:53 | TRAUMAPN ---
- Problem/Surgery Performed (1) Subdural hemorrhage Assessment/Plan: PAD#4 04/04/2017 Assessment: CT head stable - improved. Dr. Wade agrees with DVT chemical prophylaxis initiation today Plan: Lovenox PAD#5 Assessment: Dramatic improvement in mental clarity. Plan: transfer out of unit PAD#6 04/06/2017 Assessment: Continues to improve. One more day of Keppra Plan: [facility] for re[facility] PAD#8 04/08/2017 To [facility] on Monday PAD#9 04/09/2017 Assessment: Doing well. To [facility] tomorrow 04/10/2017 Set for discharge. Family was wondering about low back pain. I reviewed Abdominal CT with radiology and confirmed that there was no structural injury. Radiology will add an addendum (2) Rib fractures Assessment/Plan: 04/04/2017 Assessment: Poor cooperation with exam but no rhonchi noted CXR - no PTX - some consolidation/residual contusion noted. Poor effort. SATs 100% on 2 lpm Plan: FU CXR tomorrow. Work on mobilization ( unlikely that he will comply with IS), May try CPAP/BiPAP 04/05/2017 Assessment: CXR improved, Lungs clear Plan: Continue IS. 04/06/2017 Lungs clear 04/08/2017 Assessment: C/o posterior rib fracture pain. Plan: Start Lidoderm patch 04/08/2017 Doing well Qualifiers: Encounter type: subsequent encounter Rib fracture type: multiple ribs Fracture type: closed Laterality: right Qualified Code(s): S22.41XA - Multiple fractures of ribs, right side, initial encounter for closed fracture Assessment/Plan: 04/04/2017 No stool since admission. Plan: Mag citrate today 04/05/2017 Assessment: Good bowel movement yesterday. 04/06/2017 No stool x 48 hours - will add mag citrate 04/08/2017 Has moved bowels Objective: Vital Signs Temp Pulse Resp BP Pulse Ox 36.9 C 61 18 146/79 H 94 04/10/17 07:30 04/10/17 07:30 04/10/17 07:30 04/10/17 07:30 04/10/17 07:30 Laboratory Results 04/04/17 11:00 04/04/17 11:00 04/09/17 04/10/17 04/11/17 05:59 05:59 05:59 Intake Total 1000 1000 Balance 1000 1000 PT 13.6 SEC (12.0-15.0) 03/31/17 06:30 INR 1.05 (0.83-1.16) 03/31/17 06:30 - C-Spine Clearance Cervical Spine Cleared: No
[2017-04-10] MEDS: POLYETHYLENE GLYCOL 3350 17 GM PKT PO SCH (10:36)
[2017-04-10] MEDS: ONDANSETRON DISINTEGRATING 4 MG TAB PO PRN ×2 (11:30→14:41)
[2017-04-10] MEDS ORDERED: HYDROmorphONE/DILAUDID 2 MG TAB PO ONE (13:00)
--- NOTE | 2017-04-10 13:52 | ASMTCMCOM ---
CM Note CM Note Notes: Patient to dc to [facility]. Insurance auth still pending tentative tow picker with [facility] at 12:30. I will cancel transport if no word recieved by 12 noon. Have spoke to destination imagination coordinator and she is aware of urgency as [facility] cut off for admission arrival is 2pm. No approval from insurance in place from [facility] as of yet and [facility] placed on hold. Look to tomorrow for possible confirmation. Zaira at [phone] is over admissions. CM to follow. Date Signed: 04/10/2017 11:44 AM Electronically Signed By:Angela Pimentel RN
[2017-04-10 14:44] VITALS: BP 152/90; PULSE 94
--- NOTE | 2017-04-10 14:46 | ASMTCMCOM ---
CM Note CM Note Notes: Approval for [facility] came through ,Call to [facility] to pickup within 30 minutes to get patient to [facility]. Family notified. DC summary, orders and home meds faxed to [facility] admissions and the receiving RN. Lizz [phone]. CM available should other needs arise. Date Signed: 04/10/2017 02:45 PM Electronically Signed By:Angela Pimentel RN
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
== END 2017-04-10 15:19 | DRG 964 ==
LOC: EDUNIT# → EEVIPCON 07:21 → F2N 10:26 → F3N 04-05 21:51
PROVIDERS: ADMIT Surgery; ATTEND Surgery
PROC: 0HQ1XZZ Repair Face Skin, External Approach (ICD-10-PCS; principal; 2017-03-31)
DX: S06.5X9A Traumatic subdural hemorrhage with loss of consciousness of unspecified duration, initial encounter (principal); S27.322A Contusion of lung, bilateral, initial encounter; S22.41XA Multiple fractures of ribs, right side, initial encounter for closed fracture; S27.0XXA Traumatic pneumothorax, initial encounter; S12.000A Unspecified displaced fracture of first cervical vertebra, initial encounter for closed fracture; S01.01XA Laceration without foreign body of scalp, initial encounter; S02.119A Unspecified fracture of occiput, initial encounter for closed fracture; S42.114A Nondisplaced fracture of body of scapula, right shoulder, initial encounter for closed fracture; S01.111A Laceration without foreign body of right eyelid and periocular area, initial encounter; V20.4XXA Motorcycle driver injured in collision with pedestrian or animal in traffic accident, initial encounter; R40.2411 Glasgow coma scale score 13-15, in the field [EMT or ambulance]; Y92.413 State road as the place of occurrence of the external cause
CPT/HCPCS: 80305; 92507-GN; 92523-GN; 92610-GN; 97110-GP; 97112-GP; 97116-GP; 97163-GP; 97167-GO; 97530-GP; 97532-GO; 97535-GO; G0480; J1650; J1885; J1940; J1953; J1956; J2060; J2405; J2550; J2765; J3010; Q9967